=== PATIENT | female | born 1995 | race Two or more races ===

== ENCOUNTER 2022-08-03 12:00 | Outpatient (CLI) | payer MEDICAID, SELFPAY ==
--- NOTE | 2022-08-03 12:15 | CRLHL7_ITS ---
For Patients: As a result of the Century Cures Act, medical imaging exams and procedure reports are released immediately into your electronic medical record. You may view this report before your referring provider. If you have questions, please contact your health care provider. INDICATION: First trimester scan, establish dates. TECHNIQUE: Real-time de la fuente-scale imaging of the pelvis was performed. FINDINGS: Sonographic imaging demonstrates a single living intrauterine gestation. The embryo demonstrates a regular cardiac rate measuring 171 beats per minute. The embryo`s crown-rump length measurement of 2.7 cm corresponds to a gestational age of 9 weeks 4 days with a sonographic due date of 03/04/2023. There is a normal-appearing yolk sac. Small subchorionic hemorrhage measuring 0.4 x 1 x 0.3 centimeters IMPRESSION: Early intrauterine gestation gestational age of 9 weeks 4 days with JASON of 03/04/2023. Small subchorionic hemorrhage measuring 0.4 x 1 x 0.3 cm. Dictated by Guerda Domínguez MD @ 08/03/2022 5:44:11 PM (Electronically Signed)
== END 2022-08-03 12:01 | disposition home or self-care (01) ==
LOC: US 12:01
PROVIDERS: Visit Provider Advanced Practice Midwife
DX: Z34.91 Encounter for supervision of normal pregnancy, unspecified, first trimester (principal); O20.9 Hemorrhage in early pregnancy, unspecified; Z3A.09 9 weeks gestation of pregnancy
CPT/HCPCS: 76817

== ENCOUNTER 2022-08-03 13:22 | Outpatient (CLI) | payer MEDICAID, SELFPAY ==
[2022-08-03 16:01] LABS: HIV 1/2/P24 Combo Screen* Negative (Negative)
[2022-08-03 17:38] LABS: Hepatitis B Surface Antigen* Negative (Negative)
[2022-08-03 17:55] LABS: Hepatitis C Virus Antibody* Negative (Negative)
[2022-08-03 18:51] LABS: Chlamydia DNA Amplified* NOT DETECTED (No Detected); GC DNA Amplified* NOT DETECTED (No Detected)
[2022-08-06 14:34] LABS: Varicella-Zoster Virus Ab, IgG 697.9 IV
[2022-08-06 14:35] LABS: Rubella Antibody IgG 53.4 IU/mL
[2022-08-06 20:38] LABS: Rapid Plasma Reagin (RPR) Non Reactive (Non Reactive)
== END 2022-08-03 13:23 | disposition home or self-care (01) ==
PROVIDERS: Visit Provider Advanced Practice Midwife
DX: Z34.90 Encounter for supervision of normal pregnancy, unspecified, unspecified trimester (principal)
CPT/HCPCS: 86592; 86703; 86762; 86787; 86803; 86850; 86900; 86901; 87086; 87340; 87491; 87591

== ENCOUNTER 2022-11-05 12:56 | Outpatient (CLI) | payer MEDICAID, SELFPAY ==
--- NOTE | 2022-11-05 13:00 | CRLHL7_ITS ---
For Patients: As a result of the Century Cures Act, medical imaging exams and procedure reports are released immediately into your electronic medical record. You may view this report before your referring provider. If you have questions, please contact your health care provider. INDICATION: Evaluate anatomy. COMPARISON: 08/03/2022 TECHNIQUE: Real time de la fuente scale imaging of the fetus was performed as well as color Doppler analysis of the umbilical vessels. FINDINGS: Sonographic imaging demonstrates a single living intrauterine gestation. Fetus demonstrates a regular cardiac rate of 149 beats per minute. Fetus has a variable position. The placenta lies anteriorly without evidence of placenta previa. The edge of the placenta is located 7.4 cm from the internal cervical os. Amniotic fluid volume appears normal. Single deepest vertical pocket: 5.9 cm. The cervix is closed and measures 4.5 cm in length. The composite ultrasound gestational age is calculated at 23 weeks 0 days with an estimated sonographic due date of 03/04/2023. The estimated weight is 559 grams which lies at the 46th %. The following biometric measurements were obtained: Biparietal diameter: 5.5 cm/22 weeks 6 days 41st% Head circumference: 20.6 cm/22 weeks 5 days 25th% Abdominal circumference: 18.7 cm/23 weeks 3 days 57th% Femur length: 3.9 cm/22 weeks 5 days 27th% The HC/AC ratio measures: 1.10 range (1.05-1.21) On anatomic survey, there is a normal appearance of the cerebral ventricles, cavum septi pellucidi, cisterna magna and cerebellum. The nose, lips, and facial profile appear normal. The cervical, thoracic and lumbar spine are well visualized and appear normal. There is a normal four-chamber heart view and the left and right ventricular outflow tracts appear normal. The diaphragm and stomach appear normal. The kidneys and bladder also appear normal. There is a normal three-vessel cord and cord insertion site. The four extremities appear normal. IMPRESSION: Normal OB ultrasound exam with concordance of clinical and sonographic dating. No intrinsic abnormalities noted on anatomic survey. Dictated by John Wynn MD @ 11/06/2022 10:16:34 AM (Electronically Signed)
== END 2022-11-05 12:57 | disposition home or self-care (01) ==
LOC: US 12:57
PROVIDERS: PCP Family Medicine; Visit Provider Physician Assistant
DX: Z34.92 Encounter for supervision of normal pregnancy, unspecified, second trimester (principal); Z3A.22 22 weeks gestation of pregnancy
CPT/HCPCS: 76805

== ENCOUNTER 2022-12-03 13:07 | Outpatient (CLI) | payer MEDICAID, SELFPAY ==
[2022-12-06 11:25] LABS: Rapid Plasma Reagin (RPR) Non Reactive (Non Reactive)
== END 2022-12-03 13:08 | disposition home or self-care (01) ==
LOC: NFLDREF 13:07
PROVIDERS: PCP Family Medicine; Visit Provider Physician Assistant
DX: Z34.82 Encounter for supervision of other normal pregnancy, second trimester (principal)
CPT/HCPCS: 86592

== ENCOUNTER 2023-01-19 14:47 | Outpatient (CLI) | payer MEDICAID, SELFPAY ==
--- NOTE | 2023-01-19 15:00 | CRLHL7_ITS ---
For Patients: As a result of the Century Cures Act, medical imaging exams and procedure reports are released immediately into your electronic medical record. You may view this report before your referring provider. If you have questions, please contact your health care provider. INDICATION: Third trimester scan, evaluate growth. Insufficient weight gain in . COMPARISON: 11/05/2022 TECHNIQUE: Real time de la fuente scale imaging of the fetus was performed. FINDINGS: Sonographic imaging demonstrates a single living intrauterine gestation. Fetus demonstrates a regular cardiac rate of 157 beats per minute. Fetus has a vertex position. The placenta lies anteriorly. Amniotic fluid volume appears normal and there is a single deepest vertical pocket: 6.7 cm. ROSY 17.4 cm. The estimated weight is 2123gm which lies at the 26th %. On the prior OB ultrasound exam dated 11/05/2022 the estimated weight was at the 46th%. BPD 70th percentile. HC 60th percentile. AC 19th percentile. FL 23rd percentile. The HC/AC ratio measures 1.11 range (0.95-1.11). IMPRESSION: Sonographic gestational age 33 weeks 6 days and sonographic due date of 03/03/2023. Good correlation with dates. Normal interval growth. Estimated weight 26th percentile. Abdominal circumference 19th percentile. Dictated by John Wynn MD @ 01/20/2023 6:48:34 AM (Electronically Signed)
== END 2023-01-19 14:48 | disposition home or self-care (01) ==
LOC: US 14:47
PROVIDERS: PCP Family Medicine; Visit Provider Obstetrics & Gynecology
DX: Z34.93 Encounter for supervision of normal pregnancy, unspecified, third trimester (principal); Z3A.33 33 weeks gestation of pregnancy
CPT/HCPCS: 76816

== ENCOUNTER 2023-02-02 13:12 | Outpatient (CLI) | payer MEDICAID, SELFPAY ==
[2023-02-03 14:49] LABS: Strep B DNA Probe NEGATIVE (Negative)
[2023-02-04 16:49] LABS: Strep B Pen/Amox Allergy No
== END 2023-02-02 13:13 | disposition home or self-care (01) ==
LOC: NFLDREF 13:12
PROVIDERS: PCP Family Medicine; Visit Provider Obstetrics & Gynecology
DX: K62.5 Hemorrhage of anus and rectum (principal)
CPT/HCPCS: 87081; 87653

== ENCOUNTER 2023-02-21 08:15 | Inpatient (IN) | payer MEDICAID, SELFPAY ==
[2023-02-21] VITALS (36 sets, daily range): BP systolic 87–114; BP diastolic 43–75; PULSE 65–81; RESP 16–18; TEMP 36.3–36.8; O2SAT 97–100; BMI 27.9
[2023-02-21 07:58] LABS: Basophils Absolute Auto 0.01 K/uL (0.00-0.30); Basophils Percent Auto 0.2 % (0.0-3.0); Eosinophils Absolute Auto 0.04 K/uL (0.00-0.50); Eosinophils Percent Auto 0.6 % (0.0-7.0); Hematocrit 39.3 % (33.0-51.0); Immature Granulocytes Abs Auto 0.06 K/uL (0.00-0.30); Immature Granulocytes Pct Auto 0.9 %; Lymphocytes Absolute Auto 2.21 K/uL (0.90-2.90); Lymphocytes Percent Auto 34.7 % (20-44); Mean Corpuscular HGB Conc 33 gm/dL (32-36); Mean Corpuscular Hemoglobin 28 pg (26-34); Mean Corpuscular Volume 84 fL (80-100); Monocytes Percent Auto 8.2 % (0.0-11.0); Neutrophils Absolute Auto 3.53 K/uL (1.7-7.0); Neutrophils Percent Auto 55.4 % (42.0-72.0); Platelet Count* 203 K/uL (140-440); RDW Coefficient of Variation % 12.4 % (11.5-15.5); Red Blood Count 4.66 m/uL (4.00-5.20); Slide Review Reflex No; White Blood Count* 6.37 K/uL (4.50-11.00)
[2023-02-21] MEDS: LACTATED RINGERS 1000 ML 1,000 ML 125 ML IV ×3 (08:10→13:11)
--- NOTE | 2023-02-21 08:12 | W.PM.LDBA ---
Subjective History of Present Illness Time Seen by Provider: 07:45 Date Seen: 02/21/23 Narrative: Patient is being admitted to Labor and Delivery for SROM at term. She is a 27 year old at 38.3 weeks gestation. Her full history and physical was dictated by myself on 02/17/2023. Please see this for details. She has a history of a delivery x1. She is scheduled for repeat CD on 02/25/2023. However, she ruptured her membrane at 0630 this AM and has been having Q1iqrqbms contractions since. Denies vaginal bleeding or abnormal vaginal discharge. OB - Problem Based A/P Additional Plan (1) Previous delivery affecting : Status: Acute (2) Chronic major depressive disorder: Status: Acute (3) Generalized anxiety disorder: Status: Acute (4) Mild intermittent asthma: Status: Acute Plan - Patient continues to decline TOLAC and desires repeat section - OR team notified and will proceed with repeat CD Delivery/Labor/Induction Plan Plan: Section OB Exam Physical Exam Vital signs: Temp Pulse BP Pulse Ox 98.2 F 70 114/75 100 02/21/23 08:03 02/21/23 07:29 02/21/23 07:29 02/21/23 07:35 Narrative: Physical exam: General: No acute distress Psych: Alert and oriented x3, full affect HEENT: Normocephalic, atraumatic Lungs: labored breathing with contractions Neuro: No focal deficit. Mentating appropriately Pelvic exam: Gross ROM. 1/50/-3, posterior cervix
[2023-02-21] MEDS: CEFAZOLIN 2 GM INJ IVP (08:20)
[2023-02-21 08:31] LABS: SARS PCR* Negative SARS-CoV-2 (Negative)
[2023-02-21] MEDS: AZITHROMYCIN 500 MG in 0.9 % SODIUM CHLORIDE 250 ml 250 ML 255 MG IVPB (08:32)
--- NOTE | 2023-02-21 09:22 | P.OBPRC_ITS ---
Procedure Pre-op/Post-op diagnoses: Pre-Op/Post-Op Diagnoses Operation Date: 02/21/23 08:15 <No data on this case meets the specified criteria> Procedure Done: Global Procedure Details: Procedures Operation Date: 02/21/23 08:15 Actual Procedure Side Surgeon p Section Rhiannon Andrea MD Narrative: DELIVERY BY SECTION Date of Service: 02/21/2023 Delivery time: 0840 Summary: Admitted for SROM and regular contractions in the setting of history of delivery x1, repeat lower auterine transverse section, Pfannenstiel, Closed with sutures, QBL 385 cc, No complications, Findings: Filmy adhesions of omentum to anterior uterus, Normal uterus, bilateral ovaries and tubes 9,9 Weight 7lb 9oz Primary Indication: Labor in the setting of history of delivery x1 Procedures: Repeat lower uterine transverse section Specimens Removed: Placenta Surgeon: Rhiannon Andrea MD Market Research Analyst Surgeon: None Anesthesia: Spinal and tap Report: Prophylactic antibiotic, 2 g of Ancef and 500 mg of azithromycin was given before patient was taken to OR. After arrival to the operating room patient was placed in the supine position with left lateral tilt after administration of spinal anesthesia. Laparotomy A pfannenstiel incision was made through the anterior abdominal wall with #10 scalpel approximately 2 cm above the pubic symphysis (this is approximately 2cm lower than her old incision and patient was informed that I will be making a new incision instead of going over her old incision). The incision was extended sharply with the #10 scalpel through the subcutaneous tissue to the level of fascia. The fascia was entered sharply with a #10 scalpel (Pfannenstiel) in the midline and extended in semi-elliptical fashion with Rausch scissor. The underlying muscles were dissected off the overlying fascia by grasping the superior aspect of fascia with two kendall clamps and blunt dissection was used along the midline. The fascia was further from rectus muscle with Rausch scissor and/or cautery. In similar fashion, the lower aspect of fascia was also grasped with two Kendall clamps and both blunt and sharp dissection was used to separate fascia from rectus muscle. The rectus muscles were in the midline with Khadijah's. The peritoneum was then entered sharply with Metzenbaum. The peritoneal incision was then extended superiorly and inferiorly under direct visualization with care being taken to avoid bladder and bowel using bovie cautery. Minimal filmy adhesion of omentum to anterior uterus. This was easily dissected with electro cautery. The peritoneal incision was enlarged bluntly by lateral traction from the surgeon's and family and divorce legal assistant's hand. Jaylen retractor was inserted into the abdomen. Delivery Bladder flap was not developed as the bladder was low off the lower uterine segment. A low transverse hysterotomy was made then with #10 scalpel and extended laterally and cephalad with fingers in a low transverse fashion with Manu Terrazas technique with care being taken to avoid injury to the fetus. The amniotic cavity (membrane) was then entered with spontaneous rupture of membrane, and the amniotic fluid was noted to be clear, fetus was delivered cephalic. With delivery of the baby, no extension was noted. Placenta was delivered spontaneously with steady traction on cord and manual separation of placenta from uterine wall. Closure Uterine cavity was cleaned after placental delivery with lap sponge x 2. The hysterotomy was closed in two layers with stitches using 0 vicryl with continuous locking stitches and 0 monocryl continuous non-locking. Hemostasis was achieved as needed with electrocautery. The ovaries/tubes/uterine surface were evaluated. They were found to be normal. Fascia was closed with running stitches using 0 PDS. Hemostasis was checked for and found to be adequate. The subcutaneous layer was closed with running 2-0 plain gut sutures after copious amount of irrigation. The skin was closed with 4-0 vicryl subcuticular sutures. The incision was cleaned and covered with Exofin and Mepilex dressing. Intraoperative Complications: None QBL: 385 cc Uterotonics: 30u of pitocin Disposition: The patient tolerated the procedure well. She was recovered in obstetric PACU for close monitoring in stable condition, with a contracted uterus and normal transvaginal bleeding. The was sent to mother's bedside. The placenta was not sent to pathology.
--- NOTE | 2023-02-21 09:29 | P.NB_ITS ---
Nerve Block Nerve Block Time Seen by Provider: 09:10 Date Seen: 02/21/23 Type of block requested by surgeon for post-operative analgesia: TAP Side: bilateral Time out performed: Yes Verification of patient name: Yes Verification of date of : Yes Site marking: not applicable Name of person performing procedure: lisy Continuous monitoring Was continuous monitoring of O2 sat, B/P, telemetry monitor, recorded every 15 minutes?: Yes Procedure Checklist: sterile prep, needles and gloves Ultrasound guided. Images saved: Yes Medications given in 5ml increments after negative aspiration: Marcaine %: 0.25 mL: 30 Needle gauge: 20 and Exparel mL: 10 Patient tolerated procedure well: Yes Block Charges Block Charge (with Pro Fee): TAP Bilateral Use of Ultrasound Machine for Block: Yes- US Guidance/pain block
--- NOTE | 2023-02-21 09:30 | P.ANES_ITS ---
Anesthesia Charges Start Date/Time Anesthesia Start Date: 02/21/23 Anesthesia Start Time: 08:10 Stop Date/Time Anesthesia Stop Date: 02/21/23 Anesthesia Stop Time: 09:22 Summary Emergency: INTERNAL MEDICINE VETERINARY TECHNICIAN
[2023-02-21] MEDS: KETOROLAC 30 MG/ML inj IVP (14:52)
[2023-02-21] MEDS: IBUPROFEN 600 MG TABLET PO (21:05)
[2023-02-22] VITALS (11 sets, daily range): BP systolic 92–110; BP diastolic 52–68; PULSE 66–75; RESP 16–18; TEMP 36.1–36.7; O2SAT 98
[2023-02-22] MEDS: ACETAMINOPHEN 500 MG TABLET 1000 MG PO ×2 (00:04→06:05)
[2023-02-22] MEDS: IBUPROFEN 600 MG TABLET PO (03:04)
[2023-02-22 05:52] LABS: Hemoglobin* 9.5 gm/dL (12.0-16.0)
--- NOTE | 2023-02-22 07:36 | PM.OBPNCS1 ---
OB - PN: A/P Assessment and Plan (1) Chronic major depressive disorder: Status: Acute (2) Generalized anxiety disorder: Status: Acute (3) Mild intermittent asthma: Status: Acute (4) care following delivery: Status: Acute (5) Lactating mother: Status: Acute (6) Anemia, : Status: Acute Plan 1. POD #1 2. Routine cares. 3. Would like to discharge today. Will consider if continues to do well this evening. 4. Anemia, Hgb 9.5. Begin PO iron supplementation. Plan day: 1 Plan: routine postop care (will consider discharge this evening per her request) OB - PN: Subj Subjective Date Seen: 02/22/23 Patient comments: no complaints, pain well controlled, tolerating diet and flatus present status: and doing well [place] feeding status: exclusively Narrative: Day 1:?Repeat Delivery at 38 and 3/7 weeks after SROM.? ?? Complications:? none? The patient feels well.? The pain is well controlled with current medications.? She has no new complaints.? Urinary output is adequate and she is voiding without difficulty.? Has a good appetite, is tolerating a general diet, is passing flatus, and has not had a bowel movement.? Has scant amount of rubra lochia.? She is ambulating well. She is requesting to be discharged home today if possible. She will get up and shower this morning. If she continues to do well and her pain remains well controlled will consider discharge this evening.? OB - PN: Obj Exam Physical Exam: Vital signs: Temp Pulse Resp BP Pulse Ox O2 Del Method 97.7 F 66 16 92/52 L 98 Room Air 02/22/23 03:15 02/22/23 03:15 02/22/23 06:12 02/22/23 03:15 02/22/23 03:15 02/22/23 03:15 Narrative: GENERAL APPEARANCE:? normal affect, alert, no distress? MOOD:? appropriate? CHEST:? clear to auscultation and percussion? HEART:? regular rate and rhythm? ABDOMEN:? soft, non-tender the uterine fundus is U/2 and is appropriate for the stage of recovery.?Incision is covered by a dressing that is dry.c lean and intact. Will remove the dressing this morning.? EXTREMITIES:? normal and no edema? Urinary Catheter Management: Urethral: Cath placed during this visit: yes, but has since been removed by the nurse Reason for continuing: decision to DC catheter Insertion date: 02/21/23 Removal date: 02/21/23 Removal time: 19:40 OB - PN: Obj Data Labs Labs: Laboratory Results - last 24 hr 02/21/23 02/21/23 02/22/23 07:30 07:40 05:46 WBC 6.37 RBC 4.66 Hgb 13.0 9.5 L Hct 39.3 MCV 84 MCH 28 MCHC 33 RDW Coeff of Arely 12.4 Plt Count 203 Neut % (Auto) 55.4 Lymph % (Auto) 34.7 [place] % (Auto) 8.2 Eos % (Auto) 0.6 Baso % (Auto) 0.2 Neut # (Auto) 3.53 Lymph # (Auto) 2.21 [place] # (Auto) 0.50 Eos # (Auto) 0.04 Baso # (Auto) 0.01 SARS-CoV-2 (PCR) Negative SARS-CoV-2 Blood Type O Positive Antibody Screen NEGATIVE
[2023-02-22] MEDS: DOCUSATE SODIUM 100 MG CAPSULE PO (10:32)
[2023-02-22] MEDS: FERROUS SULFATE 325 MG TABLET PO (10:34)
--- NOTE | 2023-02-22 16:46 | PM.OBDSCS1 ---
DS: Providers Provider Date Seen: 02/22/23 Date of admission: 02/21/23 08:15 Primary care physician: John Lockwood MD Admitting Clinician: Rhiannon Andrea MD Attending Physician on discharge: Rhiannon Andrea MD Date of Discharge: 02/22/23 DS: Diagnosis Discharge Diagnosis (1) care following delivery: Status: Acute (2) Lactating mother: Status: Acute (3) Anemia, : Status: Acute Exam Narrative: Exam Narrative: GENERAL APPEARANCE:? normal affect, alert, no distress? MOOD:? appropriate? CHEST:? clear to auscultation and percussion? HEART:? regular rate and rhythm? ABDOMEN:? soft, non-tender the uterine fundus is 2 cm Below Umbilicus, Midline and is appropriate for the stage of recovery. Incision well approximated without edema, redness, warmth, or drainage. Glue closure intact.? PERINEUM:? intact EXTREMITIES:? normal and no edema? Patient has no complaints? No active bleeding?? Doing well? She is requesting discharge home.? Const: Vital Signs, click to edit/add: Vital Signs - 24 hr 02/21/23 17:28 02/21/23 19:00 02/21/23 19:28 Temperature Pulse Rate Pulse Rate [Pulse Oximeter] Respiratory Rate 16 16 16 Blood Pressure Blood Pressure [Le ft Arm] Pulse Oximetry Oxygen Delivery Me thod 02/21/23 19:40 02/21/23 19:40 02/21/23 20:28 Temperature 97.8 F 97.8 F Pulse Rate 70 Pulse Rate [Pulse Oximeter] 70 Respiratory Rate 16 16 16 Blood Pressure 103/70 Blood Pressure [Le ft Arm] 103/70 Pulse Oximetry 98 98 Oxygen Delivery Me thod Room Air Room Air 02/21/23 21:12 02/21/23 22:00 02/21/23 22:28 Temperature Pulse Rate Pulse Rate [Pulse Oximeter] Respiratory Rate 16 18 18 Blood Pressure Blood Pressure [Le ft Arm] Pulse Oximetry Oxygen Delivery Me thod 02/21/23 23:30 02/21/23 23:30 02/21/23 23:28 Temperature 97.9 F 97.9 F Pulse Rate 65 Pulse Rate [Pulse Oximeter] 65 Respiratory Rate 18 18 18 Blood Pressure 97/61 Blood Pressure [Le ft Arm] 97/61 Pulse Oximetry 98 98 Oxygen Delivery Nj thod Room Air Room Air 02/22/23 00:13 02/22/23 01:28 02/22/23 02:28 Temperature Pulse Rate Pulse Rate [Pulse Oximeter] Respiratory Rate 16 16 16 Blood Pressure Blood Pressure [Le ft Arm] Pulse Oximetry Oxygen Delivery Me thod 02/22/23 03:17 02/22/23 03:15 02/22/23 04:28 Temperature 97.7 F Pulse Rate Pulse Rate [Pulse Oximeter] 66 Respiratory Rate 18 18 16 Blood Pressure Blood Pressure [Le ft Arm] 92/52 L Pulse Oximetry 98 Oxygen Delivery Me thod Room Air 02/22/23 05:28 02/22/23 06:12 02/22/23 07:56 Temperature 97 F L Pulse Rate Pulse Rate [Pulse Oximeter] 75 Respiratory Rate 16 16 16 Blood Pressure Blood Pressure [Le ft Arm] 104/68 Pulse Oximetry 98 Oxygen Delivery Nj thod Room Air 02/22/23 09:25 Temperature Pulse Rate Pulse Rate [Pulse Oximeter] Respiratory Rate 16 Blood Pressure Blood Pressure [Le ft Arm] Pulse Oximetry Oxygen Delivery Me thod DS: Data Data Completed and Pending Labs on day of discharge: Labs from last 24 hours 02/22/23 02/21/23 05:46 07:40 Hgb 9.5 L Antibody Screen NEGATIVE OB - DS: Summary Hospital Course Hospital Course: The patient is a 27 year old G 2 now P 2? admitted on 02/21/23 at 38 Weeks, 3 Days gestation for repeat after SROM.? She had an uncomplicated delivery.? She delivered a viable female .? She is breast feeding and reports things are well.? the patient has done well.? Her pain is well controlled with current medications.? She has no new complaints.? Vitals have been stable. She has remained afebrile. She is voiding without difficulty. She is passing gas and has not had a bowel movement. She is ambulating and denies any dizziness. She is planning condoms with potentially a partner vasectomy for control.?Things have continued to go very well for her today. She is ambulating without difficulty and has denied pain throughout the day. She is still requesting a discharge today. She states that she has good support at home and feel comfortable with warning signs or when to be evaluated. Denies further questions or concerns. Peripartum Data Procedures: Procedures Operation Date: 02/21/23 08:15 Actual Procedure Side Surgeon p Section Rhiannon Andrea MD complications: none Gender: Female Discharge Plan: Home Status at Discharge Functional status at discharge: independent ambulation Overall status at discharge: patient is progressing back to baseline Time Spent with Patient Time attestation: Total time spent providing and/or coordinating discharge services: Discharge Plan Discharge Disposition: Home, Self-Care Date of Admission: 02/21/23 08:15 Primary Care Provider: John Lockwood Condition: Stable Anticipated Discharge Date/Time: 02/22/23 18:00 Discharge Medications: New docusate sodium 100 mg Capsule 100 mg PO DAILY Qty: 90 0RF Rx Instructions: Take 1-2 tablets daily as needed for constipation. ibuprofen 600 mg Tablet 600 mg PO Q6H PRN (Reason: Pain) Qty: 60 0RF oxycodone 5 mg Tablet 5 - 10 mg PO Q4H PRN (Reason: Pain) Qty: 5 0RF Continued albuterol sulfate 90 mcg/actuation HFA aerosol inhaler 2 inh inhalation Q4-6H PRN (Reason: shortness of breath or wheezing) Qty: 6.7 0RF acetaminophen [Tylenol Extra Strength] 500 mg tablet 1,000 mg PO Q6H PRN fluticasone propionate 100 mcg/actuation blister with device 1 inh inhalation BID [id number] [Esgic] 50-325-40 mg tablet 1 tab PO Q6H PRN (Reason: pain) Qty: 30 0RF prenat.vits,jessica,cxy-iliq-ptzee Tablet 1 tab PO QDAY Discharge Orders: Discharge Order (Routine); Ordered 02/22/23 Ordered By: Francisca Telles Additional Instructions: Discharge instructions were reviewed with the patient including signs and symptoms of infection and home going medications? ?? Activity restrictions:? Lifting Restrictions: 20 pounds for 6 weeks? No high-impact or core exercises for 6 weeks.?? No not submerge incision under water X 2 weeks?? Nothing vaginally for 6 weeks: no tampons or intercourse? Do not drive while taking narcotic pain medication(s)? Off Work or School for 8 weeks? ?? Symptoms to report to doctor:? -Bleeding that saturates more than one pad per hour? -Passing clots larger than the size of a golf ball? -Pain not relieved by prescribed medication? -Fever above 100.4 degrees Fahrenheit? -A foul vaginal odor? -Difficulty in emotions, mood and functions? -Thoughts of hurting yourself and/or ? -Painful, reddened area in your breast? -Any drainage, redness or tenderness in your IV/epidural site? -Severe headache that doesn't improve after taking medications? -Changes in vision, including temporary loss of vision, blurred vision, and/or light sensitivity? -Upper abdominal pain (usually under ribs on the right side)? -Decrease in urination or painful, frequent urinating? -Chest pain? -Shortness of breath? -Tenderness or pain with redness and/swelling in the calf(s) of your leg? Follow up visits:?? 1. 1 week visit:? incision check.? 2. 2-week visit: discuss infant feeding/care concerns, review control options and screen for anxiety/depression.? 3. 6-week visit for an annual exam.? ?? consultation services are available to all mothers and babies for the first year after delivery.? To make an appointment, please call [phone].? Follow Up Appointments: John Lockwood MD [Primary Care Provider] - [facility] [Provider Group] Forms: [employer] Info Instructions
== END 2023-02-22 18:11 | disposition home or self-care (01) | DRG 788 ==
LOC: OB OUT 08:22 → OB 08:22
PROVIDERS: Admitting Provider Obstetrics & Gynecology; PCP Family Medicine; Visit Provider Obstetrics & Gynecology
PROC: 10D00Z1 Extraction of Products of Conception, Low, Open Approach (ICD-10-PCS; CPT 59514; principal; 2023-02-21 08:00)
DX: O75.82 Onset (spontaneous) of labor after 37 completed weeks of gestation but before 39 completed weeks gestation, with delivery by (planned) cesarean section (principal); O99.344 Other mental disorders complicating childbirth; F32.9 Major depressive disorder, single episode, unspecified; F41.1 Generalized anxiety disorder; J45.20 Mild intermittent asthma, uncomplicated; Z3A.38 38 weeks gestation of pregnancy; O90.81 Anemia of the puerperium; D64.9 Anemia, unspecified; Z37.0 Single live birth
CPT/HCPCS: 01961; 36415; 76942; 85018; 85025; 86850; 86900; 86901; 87635; 99140; A9270; C9290; J0456; J0690; J1100; J1200; J1885; J2274; J2370; J2405; J2590; J3490; J7050; J7120

== ENCOUNTER 2023-09-20 13:03 | Emergency (ER) | payer MEDICAID, SELFPAY ==
[2023-09-20 13:18] VITALS: BP 110/71; PULSE 87; RESP 16; TEMP 36.3; O2SAT 99; BMI 27.3
--- NOTE | 2023-09-20 15:18 | ED.GENADULT ---
HPI - General Adult General Chief complaint: Abdominal Pain Stated complaint: Abdominal pain Time Seen by Provider: 09/20/23 15:19 History of Present Illness HPI narrative: Patient reports vomiting, nausea and abdominal pain that wraps around to back as well as chills. These symptoms began today. 28-year-old woman presenting to the emergency department with vomiting nausea abdominal pain. She has had some chills that seems to accompanying nausea. Does have a history of diverticulitis, endometritis and congenitally atrophic kidney. She says that this burning and wrap around pain that she has starting in the epigastrium as described and then wrapping around underneath is not unfamiliar for endometrial pain but would be in a different location. Denies heartburn. Years ago had cholecystectomy and since has had loose stools but otherwise no problems. Is not short of breath. Symptoms seem to have begun over this last week with onset of discomfort in the epigastrium that came and went and now she is having more of a burning spreading pain from the epigastrium around both sides. No dysuria or hematuria described. She has been vomiting now over the last day. No hematemesis noted. Last week she does recall while driving that she felt suddenly really financial services agent her upper abdomen and it spread out. No ill exposures although daughter with a stye that apparently had a staph organism. As above does not appear to be constipated Related Data Home Medications Medication Instructions Recorded Confirmed acetaminophen 500 mg tablet 1,000 mg PO Q6H PRN 12/03/22 08/25/23 (Tylenol Extra Strength) fluticasone propionate 100 1 inh inhalation BID 12/31/22 08/25/23 mcg/actuation blister powder for inhalation Previous Rx's Medication Instructions Recorded ibuprofen 600 mg tablet 600 mg PO Q6H PRN Pain #60 tabs 02/22/23 albuterol sulfate 90 mcg/actuation 2 inh inhalation Q4-6H PRN 04/06/23 aerosol inhaler shortness of breath or wheezing #6.7 grams dblficyqnl-kyjoywabbkhqt-uzgkugvt 1 tab PO Q6H PRN pain #30 tabs 04/06/23 50 mg-325 mg-40 mg tablet (Esgic) uljlajcv-syqrvv-OA-thonzonm 3.3 4 drp otic (ear) TID #10 mL 08/26/23 mg-3 mg-10 mg-0.5 mg/mL ear drops,susp (Cortisporin-TC) Allergies Allergy/AdvReac Type Severity Reaction Status Date / Time sumatriptan Allergy Severe throat Verified 08/25/23 16:40 stacey blount Review of Systems Status of ROS: Reports: 6 or more systems reviewed and unremarkable except as noted in History and below [facility] Medical History Diverticulitis (02/04/22) ?K57.92 - Diverticulitis of intestine, part unspecified, without perforation or abscess without bleeding (ICD-10) Generalized anxiety disorder ?F41.1 - Generalized anxiety disorder (ICD-10) Migraines ?G43.909 - Migraine, unspecified, not intractable, without status migrainosus (ICD-10) Vitamin D deficiency (10/26/12) ?E55.9 - Vitamin D deficiency, unspecified (ICD-10) Mild intermittent asthma (02/26/10) ?J45.20 - Mild intermittent asthma, uncomplicated (ICD-10) Gastritis (09/27/19) ?K29.70 - Gastritis, unspecified, without bleeding (ICD-10) Congenital atrophy of kidney ?Q60.5 - Renal hypoplasia, unspecified (ICD-10) Endometriosis determined by laparoscopy (03/22/17) ?N80.9 - Endometriosis, unspecified (ICD-10) Surgical History Previous delivery affecting ?O34.219 - Maternal care for unspecified type scar from previous delivery (ICD-10) History of section (02/27/19) ?Z98.891 - History of uterine scar from previous surgery (ICD-10) History of laparoscopy (03/22/17) ?Z98.890 - Other specified postprocedural states (ICD-10) [place] teeth extracted ?K08.409 - Partial loss of teeth, unspecified cause, unspecified class (ICD-10) History of cholecystectomy ?Z90.49 - Acquired absence of other specified parts of digestive tract (ICD-10) Family History Mother Asthma Diabetes Glaucoma (increased eye pressure) Retinal detachment Brother Asthma Father High blood pressure High cholesterol Brother Insulin resistance Social History Smoking Status: Never smoker Do you use any of these nicotine containing products: None Second hand tobacco smoke exposure: No How often do you have a drink containing alcohol: never How often do you have six or more drinks on one occasion: Never AUDIT-C Alcohol total score: 0 Non-prescribed substance use: denies use Little interest or pleasure in doing things: several days Feeling down, depressed, or hopeless: several days Exam Narrative: Exam Narrative: Pleasant. Seems tired. NAD. Oropharynx is moist. Seems to be restricted in how far she can open her jaw but not painful. No erythema. Neck is supple without lymphadenopathy. Lungs are clear heart in a regular rate and rhythm. Abdomen is soft and uncomfortable to palpation through the epigastrium generally upper abdomen. Though on exam appears to have discomfort throughout the abdomen. Bowel sounds are present. No masses are appreciated. Abdomen is protuberant or overweight. Extremities are well perfused without edema. Const: Vital Signs, click to edit/add: Vital Signs - 24 hr 09/20/23 13:18 Temperature 97.4 F L Pulse Rate [Pulse Oximeter] 87 Respiratory Rate 16 Blood Pressure [Ri ght Upper Arm] 110/71 Pulse Oximetry 99 Oxygen Delivery Me thod Room Air Documenting provider has reviewed patient's vital signs: yes Course Vital Signs Vital signs: Initial Vital Signs Temperature 97.4 F L 09/20/23 13:18 Temperature Source Temporal Artery Scan 09/20/23 13:18 Pulse Rate 87 09/20/23 13:18 Respiratory Rate 16 09/20/23 13:18 Blood Pressure 110/71 09/20/23 13:18 Blood Pressure Mean 84 09/20/23 13:18 Pulse Oximetry 99 09/20/23 13:18 Oxygen Delivery Method Room Air 09/20/23 13:18 Vital Signs Temperature 97.4 F L 09/20/23 13:18 Pulse Rate 87 09/20/23 13:18 Respiratory Rate 16 09/20/23 13:18 Blood Pressure 110/71 09/20/23 13:18 Pulse Oximetry 99 09/20/23 13:18 Oxygen Delivery Method Room Air 09/20/23 13:18 Temperature 97.4 F L 09/20/23 13:18 Pulse Rate 87 09/20/23 13:18 Respiratory Rate 16 09/20/23 13:18 Blood Pressure 110/71 09/20/23 13:18 Pulse Oximetry 99 09/20/23 13:18 Oxygen Delivery Method Room Air 09/20/23 13:18 Medications Administered Medications: Discontinued Medications Generic Name Dose Route Start Last Admin Trade Name Michelle PRN Reason Stop Dose Admin Sodium Chloride 1,000 mls @ 1,000 mls/hr 09/20/23 15:28 09/20/23 16:51 0.9 % Sodium Chloride 1000 Ml IV 09/20/23 16:27 Infused .Q1H ONE Infusion Ketorolac Tromethamine 30 mg 09/20/23 15:47 09/20/23 15:56 Ketorolac 30 Mg/Ml Inj IVP 09/20/23 15:48 30 mg ONCE ONE Administration Ondansetron HCl 4 mg 09/20/23 15:28 09/20/23 15:56 Ondansetron 2 Mg/Ml Inj IVP 09/20/23 15:29 4 mg ONCE ONE Administration Medical Decision Making MDM Narrative Medical decision making narrative: She would appreciate fluids and antiemetics. Abdominal symptoms are nonspecific and generalized. I feel like I would need some lab to direct better, more efficient imaging. Symptoms are not inconsistent with a gastroenteritis. Will evaluate for evidence of retained ductal stone, urinary tract infection, pancreatitis, flare of heartburn otherwise, COVID or influenza, marked elevation in white count that might prompt further imaging. IV initiated. Receives normal saline, Zofran and ketorolac with request for pain medication. On reassessment had improved. Nausea started to build again and she said her discomfort was increasing as well; indicating epigastric. Given promethazine and GI cocktail. Still with discomfort but feeling somewhat lightheaded/more tired following promethazine administration. No peripheral sensory changes. Labs overall reassuring with mildly elevated white count, mild elevation in ALT, normal lipase, concentrated urine Offered further workup but she feels she needs to return to her children. Says she has Zofran available at home. Reported that did not take this because did not have time to find it before presenting to the emergency department Easily ambulatory from the ER. See patient discharge plan Lab Data Lab results reviewed: Yes I reviewed the patient's lab results Labs: Lab Results 09/20/23 09/20/23 09/20/23 Range/Units 15:40 15:45 15:45 WBC 14.06 H (4.50-11.00) K/uL RBC 5.13 (4.00-5.20) m/uL Hgb 14.9 (12.0-16.0) gm/dL Hct 45.0 (33.0-51.0) % MCV 88 (80-100) fL MCH 29 (26-34) pg MCHC 33 (32-36) gm/dL RDW Coeff of Arely 12.2 (11.5-15.5) % Plt Count 217 (140-440) K/uL Neut % (Auto) 85.8 H (42.0-72.0) % Lymph % (Auto) 8.5 L (20-44) % Angelina % (Auto) 4.8 (0.0-11.0) % Eos % (Auto) 0.6 (0.0-7.0) % Baso % (Auto) 0.1 (0.0-3.0) % Neut # (Auto) 12.10 H (1.7-7.0) K/uL Lymph # (Auto) 1.20 (0.90-2.90) K/uL Angelina # (Auto) 0.70 (0.00-0.90) K/UL Eos # (Auto) 0.10 (0.00-0.50) K/uL Baso # (Auto) 0.00 (0.00-0.30) K/uL Abs Immat Gran (auto) 0.00 (0.00-0.30) K/uL Imm/Tot Granulo (auto) 0.2 % D-Dimer Quant (PE/DVT) 0.32 (0.00-0.50) ug/ml Sodium 140 (135-149) mmol/L Potassium 4.0 (3.6-5.1) mmol/L Chloride 104 (96-114) mmol/L Carbon Dioxide 25 (20-32) mmol/L Anion Gap 11 (7-15) mEq/L BUN 14 (5-24) mg/dL Creatinine 0.5 (0.5-1.5) mg/dL Estimated Creat Clear 118.17 Estimated GFR 129 ml/min Glucose 125 H (60-115) mg/dL Calcium 8.7 (8.4-10.6) mg/dL Total Bilirubin 1.1 Cancelled (0.1-1.5) mg/dL Direct Bilirubin 0.0 (0.0-0.5) mg/dL AST (12-35) U/L ALT (4-35) U/L Alkaline Phosphatase (40-150) U/L C-Reactive Protein (0.5-1.0) mg/dL Total Protein (6.0-8.3) g/dL Albumin (3.3-5.0) g/dL Lipase (23-300) U/L Urine Color Yellow (Yellow) Urine Appearance Clear (Clear) Urine pH 5.5 (5.0-8.5) Ur Specific [place] >= 1.030 (1.000-1.030) Urine Protein 1+ A (Negative) Urine Glucose (UA) Negative (Negative) Urine Ketones Negative (Negative) Urine Blood Trace-lysed A (Negative) Urine Nitrite Negative (Negative) Urine Bilirubin Negative (Negative) Urine Urobilinogen 0.2 (0.2-1.0) Ur Leukocyte Esterase Negative (Negative) Urine RBC 0-2 (0-2) Urine WBC 0-2 (0-5) Ur Squamous Epith Cells Moderate A (None-Few) Urine Bacteria Few A (None) SARS-CoV-2 (PCR) (Negative) Influenza Type A (PCR) (Negative) Influenza Type B (PCR) (Negative) 09/20/23 09/20/23 09/20/23 Range/Units 15:45 15:45 15:45 WBC (4.50-11.00) K/uL RBC (4.00-5.20) m/uL Hgb (12.0-16.0) gm/dL Hct (33.0-51.0) % MCV (80-100) fL MCH (26-34) pg MCHC (32-36) gm/dL RDW Coeff of Arely (11.5-15.5) % Plt Count (140-440) K/uL Neut % (Auto) (42.0-72.0) % Lymph % (Auto) (20-44) % Angelina % (Auto) (0.0-11.0) % Eos % (Auto) (0.0-7.0) % Baso % (Auto) (0.0-3.0) % Neut # (Auto) (1.7-7.0) K/uL Lymph # (Auto) (0.90-2.90) K/uL Angelina # (Auto) (0.00-0.90) K/UL Eos # (Auto) (0.00-0.50) K/uL Baso # (Auto) (0.00-0.30) K/uL Abs Immat Gran (auto) (0.00-0.30) K/uL Imm/Tot Granulo (auto) % D-Dimer Quant (PE/DVT) (0.00-0.50) ug/ml Sodium (135-149) mmol/L Potassium (3.6-5.1) mmol/L Chloride (96-114) mmol/L Carbon Dioxide (20-32) mmol/L Anion Gap (7-15) mEq/L BUN (5-24) mg/dL Creatinine (0.5-1.5) mg/dL Estimated Creat Clear Estimated GFR ml/min Glucose (60-115) mg/dL Calcium (8.4-10.6) mg/dL Total Bilirubin (0.1-1.5) mg/dL Direct Bilirubin Cancelled (0.0-0.5) mg/dL AST 32 Cancelled (12-35) U/L ALT 53 H Cancelled (4-35) U/L Alkaline Phosphatase 96 (40-150) U/L C-Reactive Protein (0.5-1.0) mg/dL Total Protein (6.0-8.3) g/dL Albumin (3.3-5.0) g/dL Lipase (23-300) U/L Urine Color (Yellow) Urine Appearance (Clear) Urine pH (5.0-8.5) Ur Specific [place] (1.000-1.030) Urine Protein (Negative) Urine Glucose (UA) (Negative) Urine Ketones (Negative) Urine Blood (Negative) Urine Nitrite (Negative) Urine Bilirubin (Negative) Urine Urobilinogen (0.2-1.0) Ur Leukocyte Esterase (Negative) Urine RBC (0-2) Urine WBC (0-5) Ur Squamous Epith Cells (None-Few) Urine Bacteria (None) SARS-CoV-2 (PCR) (Negative) Influenza Type A (PCR) (Negative) Influenza Type B (PCR) (Negative) 09/20/23 09/20/23 09/20/23 Range/Units 15:45 15:45 15:45 WBC (4.50-11.00) K/uL RBC (4.00-5.20) m/uL Hgb (12.0-16.0) gm/dL Hct (33.0-51.0) % MCV (80-100) fL MCH (26-34) pg MCHC (32-36) gm/dL RDW Coeff of Arely (11.5-15.5) % Plt Count (140-440) K/uL Neut % (Auto) (42.0-72.0) % Lymph % (Auto) (20-44) % Angelina % (Auto) (0.0-11.0) % Eos % (Auto) (0.0-7.0) % Baso % (Auto) (0.0-3.0) % Neut # (Auto) (1.7-7.0) K/uL Lymph # (Auto) (0.90-2.90) K/uL Angelina # (Auto) (0.00-0.90) K/UL Eos # (Auto) (0.00-0.50) K/uL Baso # (Auto) (0.00-0.30) K/uL Abs Immat Gran (auto) (0.00-0.30) K/uL Imm/Tot Granulo (auto) % D-Dimer Quant (PE/DVT) (0.00-0.50) ug/ml Sodium (135-149) mmol/L Potassium (3.6-5.1) mmol/L Chloride (96-114) mmol/L Carbon Dioxide (20-32) mmol/L Anion Gap (7-15) mEq/L BUN (5-24) mg/dL Creatinine (0.5-1.5) mg/dL Estimated Creat Clear Estimated GFR ml/min Glucose (60-115) mg/dL Calcium (8.4-10.6) mg/dL Total Bilirubin (0.1-1.5) mg/dL Direct Bilirubin (0.0-0.5) mg/dL AST (12-35) U/L ALT (4-35) U/L Alkaline Phosphatase Cancelled (40-150) U/L C-Reactive Protein 0.6 (0.5-1.0) mg/dL Total Protein 7.9 Cancelled (6.0-8.3) g/dL Albumin 4.8 Cancelled (3.3-5.0) g/dL Lipase 101 (23-300) U/L Urine Color (Yellow) Urine Appearance (Clear) Urine pH (5.0-8.5) Ur Specific [place] (1.000-1.030) Urine Protein (Negative) Urine Glucose (UA) (Negative) Urine Ketones (Negative) Urine Blood (Negative) Urine Nitrite (Negative) Urine Bilirubin (Negative) Urine Urobilinogen (0.2-1.0) Ur Leukocyte Esterase (Negative) Urine RBC (0-2) Urine WBC (0-5) Ur Squamous Epith Cells (None-Few) Urine Bacteria (None) SARS-CoV-2 (PCR) Negative SARS-CoV-2 (Negative) Influenza Type A (PCR) Negative PCR FLU A (Negative) Influenza Type B (PCR) Negative PCR FLU B (Negative) Discharge Plan Discharge Clinical Impression: Acute upper abdominal pain, Vomiting Patient Disposition: Home w/ Parent or Adult Condition: Stable Additional Instructions: Might want to use some of that Zofran over the next couple of days. Focus on hydration with slow advance of diet over the next 36 hours or so. Diluted juices, soup broths, rice, crackers. Return for intractable vomiting, severe/increased abdominal pain, associated fever. Prescriptions: No Action acetaminophen [Tylenol Extra Strength] 500 mg tablet 1,000 mg PO Q6H PRN fluticasone propionate 100 mcg/actuation blister with device 1 inh inhalation BID albuterol sulfate 90 mcg/actuation HFA aerosol inhaler 2 inh inhalation Q4-6H PRN (Reason: shortness of breath or wheezing) Qty: 6.7 1RF eqsjdbesic-sbsfuktsxbbsa-lymd [Esgic] 50-325-40 mg tablet 1 tab PO Q6H PRN (Reason: pain) Qty: 30 0RF ibuprofen 600 mg Tablet 600 mg PO Q6H PRN (Reason: Pain) Qty: 60 0RF Cortisporin-TC 3.3-3-10-0.5 mg/mL drops,suspension 4 drp otic (ear) TID Qty: 10 0RF Follow Up/Referrals: John Lockwood MD [Primary Care Provider] - Stand Alone Forms: [employer] Info Instructions
[2023-09-20 15:55] LABS: Basophils Percent Auto 0.1 % (0.0-3.0); Eosinophils Percent Auto 0.6 % (0.0-7.0); Hemoglobin* 14.9 gm/dL (12.0-16.0); Immature Granulocytes Pct Auto 0.2 %; Lymphocytes Percent Auto 8.5 % (20-44); Mean Corpuscular HGB Conc 33 gm/dL (32-36); Mean Corpuscular Hemoglobin 29 pg (26-34); Mean Corpuscular Volume 88 fL (80-100); Monocytes Percent Auto 4.8 % (0.0-11.0); Neutrophils Percent Auto 85.8 % (42.0-72.0); Platelet Count* 217 K/uL (140-440); RDW Coefficient of Variation % 12.2 % (11.5-15.5); Red Blood Count 5.13 m/uL (4.00-5.20); White Blood Count* 14.06 K/uL (4.50-11.00)
[2023-09-20] MEDS: KETOROLAC 30 MG/ML inj IVP (15:56)
[2023-09-20] MEDS: 0.9 % SODIUM CHLORIDE 1000 ml 1,000 ML IV (15:56)
[2023-09-20] MEDS: ONDANSETRON 2 MG/ML inj 4 MG IVP (15:56)
[2023-09-20 15:58] LABS: Slide Review Reflex No
[2023-09-20 16:05] LABS: Appearance Urine Clear (Clear); Bilirubin Urine Negative (Negative); Blood Urine Trace-lysed (Negative); Color Urine Yellow (Yellow); Glucose Urine Negative (Negative); Ketones Urine Negative (Negative); Leukocyte Esterase Urine Negative (Negative); Nitrite Urine Negative (Negative); Protein Urine 1+ (Negative); Specific Gravity Urine >= 1.030 (1.000-1.030); Urobilinogen Urine 0.2 (0.2-1.0); pH Urine 5.5 (5.0-8.5)
[2023-09-20 16:08] LABS: Albumin* 4.8 g/dL (3.3-5.0); Chloride* 104 mmol/L (96-114)
[2023-09-20 16:09] LABS: Sodium* 140 mmol/L (135-149)
[2023-09-20 16:11] LABS: Alkaline Phosphatase* 96 U/L (40-150); Anion Gap 11 mEq/L (7-15); Aspartate Amino Transferase* 32 U/L (12-35); Bilirubin Total* 1.1 mg/dL (0.1-1.5); Blood Urea Nitrogen* 14 mg/dL (5-24); Carbon Dioxide* 25 mmol/L (20-32); Creatinine* 0.5 mg/dL (0.5-1.5); D Dimer Quantitative* 0.32 ug/ml (0.00-0.50); Est. Creatinine Clearance* 118.17; Estimated Glomerular Filt Rate 129 ml/min; Glucose* 125 mg/dL (60-115); Lipase* 101 U/L (23-300); Total Protein* 7.9 g/dL (6.0-8.3)
[2023-09-20 16:12] LABS: Alanine Aminotransferase* 53 U/L (4-35); Calcium* 8.7 mg/dL (8.4-10.6)
[2023-09-20 16:14] LABS: Bacteria Urine Few; RBC Urine 0-2 (0-2); Squamous Epithelial Cell Urine Moderate (None-Few); WBC Urine 0-2 (0-5)
[2023-09-20 16:14] LABS: C Reactive Protein* 0.6 mg/dL (0.5-1.0)
[2023-09-20 16:31] LABS: PCR FLU A Negative PCR FLU A (Negative); PCR FLU B Negative PCR FLU B (Negative); SARS PCR* Negative SARS-CoV-2 (Negative)
== END 2023-09-20 17:53 | disposition home or self-care (01) ==
PROVIDERS: Emergency Provider Family Medicine; PCP Family Medicine
DX: R10.9 Unspecified abdominal pain (principal); R11.10 Vomiting, unspecified
CPT/HCPCS: 36415; 80048; 80076; 81001; 83690; 85025; 85379; 86140; 87086; 87631; 96374; 96375; 99284; J1885; J2405; J7030

== ENCOUNTER 2024-02-23 13:26 | Emergency (ER) | payer MEDICAID, SELFPAY ==
[2024-02-23 13:28] VITALS: BP 106/70; PULSE 85; RESP 16; TEMP 36.8; O2SAT 99; BMI 27.3
--- NOTE | 2024-02-23 14:14 | ED_ITS ---
HPI - Dizziness General Chief Complaint: Dizziness/Vertigo Stated Complaint: Dehydration Time Seen by Provider: 02/23/24 13:27 History of Present Illness HPI Narrative: This 28-year-old female comes in reporting vertigo symptoms over the past couple weeks. She states that it seems to be occurring primarily when laying down or getting up from a lying position. At other time she really does not have much vertigo but does feel that she is having some little thing toward the left when ambulating. She states that she does not have any weakness or altered sensation. She does report a ringing in her left ear since these vertigo symptoms started. She also has accumulation of cerumen in her ear frequently. She does not report any altered speech, unilateral weakness, or altered sensation otherwise. Related Data Previous Rx's Medication Instructions Recorded meclizine 25 mg tablet 25 mg PO QID #20 tabs 02/23/24 methylprednisolone 4 mg tablets in See Rx Instructions PO .COMPLEX 02/23/24 a dose pack (Medrol (Pietro)) #21 ea ondansetron HCl 4 mg tablet 4 mg PO Q6H #10 tabs 02/23/24 Allergies Allergy/AdvReac Type Severity Reaction Status Date / Time sumatriptan Allergy Severe throat Verified 08/25/23 16:40 swells shut Review of Systems Status of ROS: Reports: 10 or more systems reviewed and unremarkable except as noted in History and below Narrative: Constitutional: No fevers, no weight gain or loss. Eyes: No discharge. No vision changes. HENT: No congestion, no sore throat, no ear pain. Cardiovascular: No chest pain, no palpitations. Respiratory: No shortness of breath, no wheezes, no cough. Gastrointestinal: No abdominal pain, no vomiting, no diarrhea. Genitourinary: No dysuria, no hematuria. Musculoskeletal: Normal range of motion. Skin: No rashes, no pruritis. Neurological: No weakness, sensory change, speech change. Vertigo symptoms and left-sided tinnitus as described above. Endo/Heme/Allergies: No bruising or bleeding. No polydipsia. Pysch: no suicidality, no anxiety, no insomnia. All other systems reviewed and are negative. [facility] Medical History Diverticulitis (02/04/22) ?K57.92 - Diverticulitis of intestine, part unspecified, without perforation or abscess without bleeding (ICD-10) Generalized anxiety disorder ?F41.1 - Generalized anxiety disorder (ICD-10) Migraines ?G43.909 - Migraine, unspecified, not intractable, without status migrainosus (ICD-10) Vitamin D deficiency (10/26/12) ?E55.9 - Vitamin D deficiency, unspecified (ICD-10) Mild intermittent asthma (02/26/10) ?J45.20 - Mild intermittent asthma, uncomplicated (ICD-10) Gastritis (09/27/19) ?K29.70 - Gastritis, unspecified, without bleeding (ICD-10) Congenital atrophy of kidney ?Q60.5 - Renal hypoplasia, unspecified (ICD-10) Endometriosis determined by laparoscopy (03/22/17) ?N80.9 - Endometriosis, unspecified (ICD-10) Surgical History Previous delivery affecting ?O34.219 - Maternal care for unspecified type scar from previous delivery (ICD-10) History of section (02/27/19) ?Z98.891 - History of uterine scar from previous surgery (ICD-10) History of laparoscopy (03/22/17) ?Z98.890 - Other specified postprocedural states (ICD-10) [place] teeth extracted ?K08.409 - Partial loss of teeth, unspecified cause, unspecified class (ICD- 10) History of cholecystectomy ?Z90.49 - Acquired absence of other specified parts of digestive tract (ICD- 10) Family History Mother Asthma Diabetes Glaucoma (increased eye pressure) Retinal detachment Brother Asthma Father High blood pressure High cholesterol Brother Insulin resistance Social History Smoking Status: Never smoker Do you use any of these nicotine containing products: None Second hand tobacco smoke exposure: No How often do you have a drink containing alcohol: never How often do you have six or more drinks on one occasion: Never AUDIT-C Alcohol total score: 0 Non-prescribed substance use: denies use Little interest or pleasure in doing things: several days Feeling down, depressed, or hopeless: several days Exam Narrative: Exam Narrative: Constitutional: Well-developed, well-nourished, no acute distress. HEENT: Normocephalic, atraumatic. Right tympanic membrane appears normal. Left tympanic membrane is not visualized due to cerumen impaction. Neck: Normal range of motion. Nontender. Supple. Heart: Regular. No murmurs. Normal rate. Intact distal pulses. Lungs: Clear to auscultation. No chest discomfort. No wheezes, rhonchi, or rales. Abdomen: Normal bowel sounds. Nontender. No rebound tenderness. Genitalia: Deferred. Back: No midline tenderness. Normal range of motion. Extremities: Normal range of motion. No injury. Skin: Intact. No rash. Warm. No erythema or pallor. Neurologic: No altered sensation. No weakness. Alert and oriented. No facial asymmetry. Tongue is midline. [place]-oz-[id number] is normal. No pronator drift. Perlite Grinder strength is equal bilaterally. Able to raise each leg from the bed. Psychiatric: No suicidality. No anxiety or depression. No insomnia. Nursing notes and vitals signs are reviewed. Const: Vital Signs, click to edit/add: Vital Signs - 24 hr 02/23/24 13:28 Temperature 98.2 F Pulse Rate [Pulse Oximeter] 85 Respiratory Rate 16 Blood Pressure [Ri ght Upper Arm] 106/70 Pulse Oximetry 99 Oxygen Delivery Me thod Room Air Course Vital Signs Vital signs: Initial Vital Signs Temperature 98.2 F 02/23/24 13:28 Temperature Source Temporal Artery Scan 02/23/24 13:28 Pulse Rate 85 02/23/24 13:28 Respiratory Rate 16 02/23/24 13:28 Blood Pressure 106/70 02/23/24 13:28 Blood Pressure Mean 82 02/23/24 13:28 Blood Pressure Position Sitting 02/23/24 13:28 Pulse Oximetry 99 02/23/24 13:28 Oxygen Delivery Method Room Air 02/23/24 13:28 Vital Signs Temperature 98.2 F 02/23/24 13:28 Pulse Rate 85 02/23/24 13:28 Respiratory Rate 16 02/23/24 13:28 Blood Pressure 106/70 02/23/24 13:28 Pulse Oximetry 99 02/23/24 13:28 Oxygen Delivery Method Room Air 02/23/24 13:28 Temperature 98.2 F 02/23/24 13:28 Pulse Rate 85 02/23/24 13:28 Respiratory Rate 16 02/23/24 13:28 Blood Pressure 106/70 02/23/24 13:28 Pulse Oximetry 99 02/23/24 13:28 Oxygen Delivery Method Room Air 02/23/24 13:28 MDM - Dizziness MDM Narrative Medical decision making narrative: This patient comes in reporting vertigo symptoms and has normal exam except for cerumen in the left ear canal. She is not showing any sign of neurologic deficit or central process for her vertigo symptoms. She does have some hearing changes on the left side making this more suspicious for Meniere's disease. I did discuss the role of imaging for vertigo but indicated reassurance with her neurologic exam. In a process of shared decision-making she declined any imaging at this time. Her symptoms are suspicious for benign positional vertigo or more likely Meniere's disease with a hearing changes. She received pre scription for Medrol Dosepak, meclizine, and Zofran. I advised her to follow-up with ear nose and throat or return if worsening symptoms occur. Discharge Plan Discharge Additional Instructions: Take medication as prescribed. Use ear wax removal regimens [id number] as directed. Follow-up with ear nose and throat clinic, Dr. Atkins or Dr. Baer. Call [phone] for appointment. Return if symptoms are persistent or worsening. Prescriptions: New ondansetron HCl 4 mg tablet 4 mg PO Q6H Qty: 10 0RF meclizine 25 mg tablet 25 mg PO QID Qty: 20 0RF methylprednisolone [Medrol (Pietro)] 4 mg tablets,dose pack See Rx Instructions .ROUTE .COMPLEX Qty: 21 0RF Rx Instructions: orally per package directions Follow Up/Referrals: John Lockwood MD [Staff Physician] - Stand Alone Forms: [email or web address] Info Instructions
== END 2024-02-23 14:27 | disposition home or self-care (01) ==
LOC: ED 14:19
PROVIDERS: Emergency Provider Emergency Medicine Emergency Medical Services
DX: R42 Dizziness and giddiness (principal)
CPT/HCPCS: 99283; 99284

== ENCOUNTER 2025-05-31 08:42 | Outpatient (CLI) | payer BC, SELFPAY | END 2025-05-31 08:43 | disposition home or self-care (01) | PROVIDERS: PCP Family Medicine; Visit Provider Family Medicine | DX: E55.9 Vitamin D deficiency, unspecified (principal); R53.83 Other fatigue; Z83.438 Family history of other disorder of lipoprotein metabolism and other lipidemia; Z13.6 Encounter for screening for cardiovascular disorders | CPT/HCPCS: 80048; 80061; 82306; 85025 ==

== ENCOUNTER 2025-08-13 22:13 | Emergency (ER) | payer BC, SELFPAY ==
--- OUTSIDE RECORDS SUMMARY | 2025-08-13 22:15 | XMS_ITS | Clinical Summary ---
Author Organization [facility] Address [address] [place] [address] Care Team Providers Care [employer] Name Role Phone Pcp, No Primary Care Provider Unavailabl e Allergies Active Allergy Reactions Criticality Noted Date Comments Sumatriptan Succinate Throat Swelling/Closing High 02/27/2019 Oxytocin Chest Pain 02/27/2019 Other reaction(s): Other (see comments) Chest pain/pressure Sumatriptan *Unknown Low 08/24/2017 Dry throat Medications acetaminophen (TYLENOL EXTRA STRGTH) 500 mg tablet Take 500 mg by mouth. 9 Active escitalopram oxalate (LEXAPRO) 10 mg tabletIndications :Dysthymia 1/2 tablet once daily for 6 days, then increase to one tablet once daily. 30 tablet 0 Active albuterol HFA (PROVENTIL HFA) 90 mcg/actuation inhalerIndication s:Mild intermittent asthma without complication (HC) Inhale 2 Puffs by mouth every 4 hours if needed. 1 Inhaler 1 0 Active Active Problems Problem Noted Date Diagnosed Date Gastritis 09/27/2019 Atrophy of right kidney 12/21/2016 Kidney hypertrophy 12/21/2016 Overview (12/21/2016): left Ovarian enlargement, left 12/21/2016 Ovarian enlargement, right 12/21/2016 Migraine with aura and witho ut status migrainosus, not intractable 04/22/2015 Seasonal affective disorder 01/24/2015 Overview (08/14/2019): Overview: Disorder Affective Seasonal Vitamin D deficiency 10/26/2012 Mild intermittent asthma 02/26/2010 Resolved Problems Problem Noted Date Diagnosed Date Resolved Date Term 02/27/2019 08/24/2019 Migraine 02/26/2010 04/22/2015 Immunizations Immunization Administration Dates Next Due AMB Influenza, IIV3 (Age >=3 years)(Flu Clinic Only) 09/18/2011 DTaP 08/06/2005, 7,08/13/1995,07/29,05/09/1994 Hepatitis A (Peds) 05/19/2011,06/13/2010 Hepatitis B (Peds) 12/22/2006, 6,12/22/2005,08/06 Hepatitis B, Unspecified 12/22/2006,07/22/2006,1 Human Papilloma Virus Vaccine 06/07/2014, 011,06/13/2010 Inactivated Polio Vaccine 01/14/1994,1993, 1993 Influenza Virus, Unspecified 08/24/2017, 10/07/2009,10/22/2008,11/10 Influenza, IIV3 (Age 6-35 mos) 6,07/10/2015,09/18/2011,10/07 Influenza, IIV3 (Age >=3 years) 08/26/20 12,11/12/2010,10/07/2009,10/22,11/10/2007 Influenza, IIV4 08/24/2017,08/10/2016 Influenza, IIV4 (=>6mos) MDV 08/30/2014 MENINGOCOCCAL VACCINE 2 VIAL 2MO-55YO (MENVEO) 06/13/2010 MMR 04/07/1999,07/18/1998 Meningococcal Vaccine (Menactra) 06/13/2010 Meningococcal Vaccine (Menomune) 06/13/2010 Td (Age >=7 Years) 08/06/2005 Tdap 09/12/2012,08/06/2005 Family History Medical History Relation Name Comments Good Health Brother 1 Orthodoxy Asthma Brother 2 Zackary Hyperlipidemia Father Other Maternal Grandfather tree fe ll on him, , age 40s Diabetes type I Maternal Grandmother Diabetes Mother type 2 Good Health Paternal Grandfather Good Health Paternal Grandmother Relation Name Status Comments Brother 1 Orthodoxy Alive Brother 2 Zackary Alive Father Alive Maternal Grandfather Maternal Grandmother Mother Alive Paternal Grandfather Alive Paternal Grandmother Alive Social History Tobacco Use Types Packs/Day Years Used Date Smoking Tobacco: Never Smokeless Tobacco: Never Tobacco Cessation:Counseling Given: Yes Alcohol Use Standard Drinks/Week Comments Yes 0 (1 standard drink = 0.6 oz pur e alcohol) social/occasional PHQ-2 Answer Date Recorded PHQ-2 TOTAL SCORE 3 05/06/2020 Social Connections Answer Date Recorded Frequency of Communication with Friends and Fami ly Not on file 11/01/2021 Financial Resource Strain Answer Date R ecorded Difficulty of Paying Living Expenses Not on file 11/01/2021 Difficulty of Paying Living Expenses Not on file 11/01/2021 Comments No Sex and Gender Information Value Date Recorded Sex Assigned at Not on file 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 ([facility] (OR[facility] Comments:Reaction to p itocin lead to Last Filed Vital Signs Vital Sign Reading Time Taken Comments Blood Pressure 98/52 06/17/2020 4:44 PM CDT Pulse 73 06/17/2020 4:44 PM CDT Temperature 37.1 C (98.8 F) 06/17/2020 4:44 PM CDT Respiratory Rate 16 06/17/2020 4:44 PM CDT Oxygen Saturation 100% 06/17/2020 4:44 PM CDT Inhaled Oxygen Concentration - - Weight 60.9 kg (134 lb 4.8 oz) 06/17/2020 4:44 P M CDT Height 149 cm (4' 10.66) 05/06/2020 2:56 PM CDT Body Mass Index 27.44 05/06/2020 2:56 PM CDT Plan of Treatment Health Maintenance Due Date Last Done Comments HIV for age 15-65 2008 Hepatitis C screening for age 18-79 2011 BMI (ht and wt on same day) for age 18+ 05/06/2021 05/06/2020, 08/24/2019, 08/14/2019, Additional history exists Depression screening for age 12+ 05/06/2021 05/06/2020, 07/10/2019, 07/10/2019, Additional history exists Tetanus booster 09/12/2022 09/12/2012, 04/2005, 08/06/2005 COVID-19 vaccine series ( season) 2025 Influenza Vaccine (#1) 2025 7, 08/24/2017, 08/10/2016, Additional history exists Pap test for age 21-65 04/06/2026 3, 04/06/2023, 11/19/2016, Additional history exists RSV vaccine for adults or (1 - 1-dose 75+ series) 2068 Hepatitis B series for 19+ Completed 12/22, 12/22/2006, 07/22/2006, Additional history exists HPV series for age 9-45 Completed 06/07/20 14, 05/19/2011, 06/13/2010 Pneumococcal series for age 6-49 Aged Out No longer eligible based on patient's age to complete this topic Procedures Procedure Name Priority Date/Time Associated Diagnosis Comments HPV HIGH RISK Routine 04/06/2023 1:30 PM CDT from Last 3 Months or Most Recently Relevant to Health Maintenance Results * (ABNORMAL) HPV HIGH RISK (04/06/2023 1:30 PM CDT) TYPE 16 Negative Negative 04/12/2023 2:48 PM CDT [facility] TYPE 18 Negative Negative 04/12/2023 2:48 PM CDT [facility] OTHER HIGH RISK TYPES Positive(A) Negative 04/12/2023 2:48 PM CDT [facility] Other (Cervical) 04/06/2023 1:30 PM CDT 04/08/2023 6:17 PM CDT Narrative [facility] - 04/12/2023 2:48 PM CDT Specimen is positive for the DNA of any one of, or combination of, the following high risk HPV types: 31, 33, 35, 39, 45, 51, 52, 56, 58, 59, 66, 68. HPV types 16 and 18 DNA were undetectable or below the pre-set threshold. Methodology: Greta Sandhya 4800 HPV Test us Ivis Allison NP MICROBIOLOGY Final Res ult [facility] [address] [place] [address], from Last 3 Months or Most Recently Relevant to Health Maintenance Insurance [employer] OF NON-ID-[facility] [id number] [place] [id number] Advance Directives * Full Code (Latest Code Status on File) Date Activated Date Inactivated Comments 07/18/2019 1:47 PM 07/18/2019 11:52 PM Question Answer Comments Code Status Discussion: Discussed * Full Code Date Activated Date Inactivated Comments 02/27/2019 9:08 AM 03/01/2019 12:39 PM * Full Code Date Activated Date Inactivated Comments 03/22/2017 10:09 AM 03/22/2017 10:48 AM Care Teams [employer] Relationship Specialty Start Date End Date Pcp, No . PCP - General 05/21/21
[2025-08-13 22:33] VITALS: BP 116/74; PULSE 83; RESP 18; TEMP 36.9; O2SAT 99; BMI 28.3
--- NOTE | 2025-08-13 22:38 | ED.LOWEXIN ---
HPI - Extremity Injury (Lower) General Time Seen by Provider: 22:38 Date Seen: 08/13/25 Chief Complaint: Extremity Pain/Injury, Lower Stated Complaint: L knee pain/vomiting Time Seen by Provider: 08/13/25 22:38 Source: patient, RN notes reviewed and old records reviewed Mode of arrival: ambulatory Limitations: no limitations History of Present Illness HPI Narrative: Arley is a very pleasant 29-year-old female with history of migraine, asthma, congenital atrophy of the kidney who comes to the emergency room with complaints of left knee pain. Patient notes the onset of anterior knee pain 2 months ago without any injury or trauma. She was initially seen by her primary physician Dr. Lockwood at which time x-rays showed that she had some decreased joint space. She notes intermittent discomfort since that time until last August 09 when the pain became quite intense. She still describes it in her anterior knee but it now radiates down both sides of her calf and into her thigh. She has noticed some mild left lower back pain as well. She notes that since when the pain has become so intense she actually has episodes of vomiting. He has not had fever from this. Again, cannot recall any trauma. No loss of bowel or bladder control. Denies a history of DVT. Tried to place an knee immobilizer but it increased her pain quite a bit. She was supposed to see her primary this week but was unable to attend the appointment. Related Data Previous Rx's ?Medication ?Instructions ?Recorded albuterol sulfate 90 mcg/actuation 2 puff inhalation Q4-6H PRN 05/31/25 aerosol inhaler shortness of breath or wheezing #8.5 grams escitalopram oxalate 10 mg tablet 10 mg PO QDAY #30 tabs 05/31/25 (Lexapro) cholecalciferol (vitamin D3) 1,250 1,250 mcg PO QWEEK #13 caps 06/04/25 mcg (50,000 unit) capsule fluticasone furoate 100 1 inh inhalation Q24H #30 ea 06/08/25 mcg/actuation blister powder for inhalation (Arnuity Ellipta) Allergies Allergy/AdvReac Type Severity Reaction Status Date / Time sumatriptan Allergy Severe throat Verified 08/13/25 22:36 stacey blount Review of Systems Status of ROS: Reports: 10 or more systems reviewed and unremarkable except as noted in History and below Const: Denies: fever, chills or fatigue Eyes: Denies: change in vision ENMT: Denies: nasal congestion Cardio: Denies: chest pain or shortness of breath with exertion Resp: Denies: shortness of breath or cough GI: Reports: nausea and vomiting; Denies: abdominal pain or diarrhea : Reports: other (Denies any possibility of ); Denies: painful urination Musculo: Reports: back pain (Mild left low back) Integ/Breast: Denies: rash or redness Neuro: Denies: headache Endo: Denies: fatigue PFSH [facility] Medical History Migraine with aura ?G43.109 - Migraine with aura, not intractable, without status migrainosus (ICD-10) Diverticulitis (02/04/22) ?K57.92 - Diverticulitis of intestine, part unspecified, without perforation or abscess without bleeding (ICD-10) Vitamin D deficiency ?E55.9 - Vitamin D deficiency, unspecified (ICD-10) Mild persistent asthma ?J45.30 - Mild persistent asthma, uncomplicated (ICD-10) Chronic major depressive disorder ?F32.9 - Major depressive disorder, single episode, unspecified (ICD-10) Generalized anxiety disorder ?F41.1 - Generalized anxiety disorder (ICD-10) Congenital atrophy of kidney ?Q60.5 - Renal hypoplasia, unspecified (ICD-10) Endometriosis determined by laparoscopy (03/22/17) ?N80.9 - Endometriosis, unspecified (ICD-10) Surgical History History of 2 sections ?Z98.891 - History of uterine scar from previous surgery (ICD-10) History of laparoscopy (03/22/17) ?Z98.890 - Other specified postprocedural states (ICD-10) [place] teeth extracted ?K08.409 - Partial loss of teeth, unspecified cause, unspecified class (ICD-10) History of cholecystectomy ?Z90.49 - Acquired absence of other specified parts of digestive tract (ICD-10) Family History Mother Asthma Diabetes Glaucoma (increased eye pressure) Retinal detachment Brother Asthma Father High blood pressure High cholesterol Brother Insulin resistance Social History Narrative: , two kids, 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[employer], nonsmoker, rare ETOH What is your current living situation?: I presently have a place to live Problems where you live: mold and water leaks In the past 12 months, utilities in danger of being shut off: unable to answer In past 12 months, lack of transportation kept you from medical appts, meetings, work, or getting things needed for daily living: no In the past 12 mos, have been you worried that your food would run out before you had money to buy more?: sometimes true In the past 12 mos, the food you bought just didn't last and you didn't have money to buy more?: sometimes true Smoking Status: Never smoker Do you use any of these nicotine containing products: None Second hand tobacco smoke exposure: No How often do you have a drink containing alcohol: never How often do you have six or more drinks on one occasion: Less than monthly AUDIT-C Alcohol total score: 1 Non-prescribed substance use: denies use How often does anyone, including family, friends and others, physically hurt you: never How often does anyone, including family, friends and others, insult or talk down to you: never How often does anyone, including family, friends and others, threaten you with harm: never How often does anyone, including family, friends and others, scream or curse at you: never Health Related Social Needs: Inadequate housing (Z59.1) and food insecurity (Z59.41) Exam Narrative: Exam Narrative: Alert and oriented. In discomfort. Somewhat tearful and occasionally retching. External ears eyes nose clear. Heart with regular rate and rhythm and lungs are clear. Abdomen soft nontender. Examination of the knee shows no deformity. Movement of the patella shows pain with lateral movement. No effusion is noted. No pain in the popliteal fossa. Pain noted in the calf. No erythema. Lower extremity strength and motor is intact. Questionable wasting of the anterior quad verses the right. Very subtle. Const: Vital Signs, click to edit/add: Vital Signs - 24 hr 08/13/25 22:33 08/13/25 23:01 Temperature 98.5 F Pulse Rate [Pulse Oximeter] 83 Respiratory Rate 18 Blood Pressure [Ri t Upper Arm] 116/74 Pulse Oximetry 99 96 Oxygen Delivery Me thod Room Air Documenting provider has reviewed patient's vital signs: yes Course Course ED Course: Differential diagnosis includes but is not limited to gout, joint infection, DVT, radiculopathy, arthritis, tendinitis. At this time previous x-ray noted no significant abnormality. Ideally it would be great to have MRI availability but we do not have it this evening. Will check ultrasound of the calf as well as CBC, basic panel CRP. Will use morphine 4 mg Zofran 4 mg for discomfort and nausea. Reevaluation(s) Reevaluation #1: White count normal at 8.6 to as is CRP. Lower extremity ultrasound is negative for DVT. Reevaluation #2: Palpation of lower back does not yield significant tenderness. Pulse patient and left buttock is somewhat more uncomfortable. Strength at ankles and great toes within normal limits. Some hesitation with movement of the great toe but with distraction normal. Patient is feeling somewhat improved after morphine and Zofran. Vital Signs Vital signs: Initial Vital Signs Temperature 98.5 F 08/13/25 22:33 Temperature Source Temporal Artery Scan 08/13/25 22:33 Pulse Rate 83 08/13/25 22:33 Respiratory Rate 18 08/13/25 22:33 Blood Pressure 116/74 08/13/25 22:33 Blood Pressure Mean 88 08/13/25 22:33 Blood Pressure Position Supine 08/13/25 22:33 Pulse Oximetry 99 08/13/25 22:33 Oxygen Delivery Method Room Air 08/13/25 22:33 Vital Signs Temperature 98.5 F 08/13/25 22:33 Pulse Rate 83 08/13/25 22:33 Respiratory Rate 18 08/13/25 22:33 Blood Pressure 116/74 08/13/25 22:33 Pulse Oximetry 99 08/13/25 22:33 Oxygen Delivery Method Room Air 08/13/25 22:33 Temperature 98.5 F 08/13/25 22:33 Pulse Rate 83 08/13/25 22:33 Respiratory Rate 18 08/13/25 22:33 Blood Pressure 116/74 08/13/25 22:33 Pulse Oximetry 96 08/13/25 23:01 Oxygen Delivery Method Room Air 08/13/25 22:33 Medications Administered Medications: Generic Name Dose Route Start Last Admin Trade Name Michelle PRN Reason Stop Dose Admin Morphine Sulfate 4 mg 08/13/25 22:51 08/13/25 23:16 Morphine 4 Mg/Ml Inj IVP 08/13/25 22:52 4 mg ONCE ONE Administration Ondansetron HCl 4 mg 08/13/25 22:51 08/13/25 23:16 Ondansetron 2 Mg/Ml Inj IVP 08/13/25 22:52 4 mg ONCE ONE Administration MDM - Extremity Injury (Lower) MDM Narrative Medical decision making narrative: 1. Left knee pain-patient's primary discomfort is anterior knee. Over the past 2 months it has gotten somewhat worse and now radiates post inferiorly and superiorly. Does not really fit any specific nerve distribution although patient does have some low back pain. She notes that this occurs when she is having to be supine. White count and CRP reassuring and there is no evidence of joint infection or gout. At this time patient is receptive to a burst of steroids. Given her congenital atrophy of a kidney I would rather do steroids then an NSAID. Will do 40 mg daily for 5 days. During this time will have her avoid any ibuprofen. In addition we spoke about correct dosing of acetaminophen. Reluctantly she did agree to oxycodone as needed. Will use 5 mg tabs 1/2-1 tab Q 4-6 hours p.r.n. 8. With no refills via instant meds. Finally for nausea Zofran 4 mg ODT q.8 hours p.r.n. 10. With no refill via instant meds. No vomiting noted in the ED. Given the reassuring appearance of the joint, no red flag symptoms, reassuring laboratory values I do not feel that a CT is in order here tonight. I do think MRI which I cannot do at this time is the better radiological test. 2. Disposition-at this time I do believe this more likely represents knee pain than radicular pain a but certainly they could be overlapping. Patient has a follow-up appointment on WednesdayAugust 15 with her primary doctor Mandie. She may need MRI to further ascertain source of her discomfort. I am hopeful that the steroid may be helpful in this case. She understands to return to the ER if she starts experiencing loss of bowel or bladder control, genital numbness, increasing redness or swelling of the knee or fever. Medical Records Attestation: I reviewed the patient's medical records. Lab Data Labs: Lab Results 08/13/25 Range/Units 23:00 WBC 8.62 (4.50-11.00) K/uL RBC 4.64 (4.00-5.20) m/uL Hgb 13.4 (12.0-16.0) gm/dL Hct 40.1 (33.0-51.0) % MCV 86 (80-100) fL MCH 29 (26-34) pg MCHC 33 (32-36) gm/dL RDW Coeff of Arely 12.3 (11.5-15.5) % Plt Count 238 (140-440) K/uL Neut % (Auto) 53.1 (42.0-72.0) % Lymph % (Auto) 38.5 (20-44) % [place] % (Auto) 6.3 (0.0-11.0) % Eos % (Auto) 1.9 (0.0-7.0) % Baso % (Auto) 0.1 (0.0-3.0) % Neut # (Auto) 4.58 (1.7-7.0) K/uL Lymph # (Auto) 3.32 H (0.90-2.90) K/uL [place] # (Auto) 0.50 (0.00-0.90) K/UL Eos # (Auto) 0.16 (0.00-0.50) K/uL Baso # (Auto) 0.01 (0.00-0.30) K/uL Abs Immat Gran (auto) 0.01 (0.00-0.30) K/uL Imm/Tot Granulo (auto) 0.1 % Sodium 134 L (135-149) mmol/L Potassium 3.6 (3.6-5.1) mmol/L Chloride 101 (96-114) mmol/L Carbon Dioxide 25 (20-32) mmol/L Anion Gap 8 (7-15) mEq/L BUN 14 (5-24) mg/dL Creatinine 0.6 (0.5-1.5) mg/dL Estimated Creat Clear 97.58 Estimated GFR 123 ml/min Glucose 132 H (60-115) mg/dL Calcium 9.1 (8.4-10.6) mg/dL C-Reactive Protein < 0.5 L (0.5-1.0) mg/dL Imaging Data Knee x-ray from previous: Attestation: I have reviewed the pertinent imaging results. My impression: By my read I do not note any significant abnormality. Radiologist's impression: No significant abnormality was noted on the radiologist read. Discharge Plan Discharge Clinical Impression: Knee pain, left anterior Patient Disposition: Home, Self-Care Condition: Improved Additional Instructions: Follow-up as previously scheduled with your primary on Wednesday. May need MRI of the knee or evaluation of your low back. Tylenol should be limited to 4000 mg in a 24 hour period. You may use 650 mg every 4 hours or 1000 mg every 6 hours. Will have you not use ibuprofen at this time while you are on a steroid. Together they can be hard on the stomach. Prednisone as a steroid we will use for anti-inflammatory purposes. Will give you a small amount of oxycodone to use for breakthrough pain. Please note that you should not use this medicine if your driving. You should not use alcohol or any sedating or sleep medications with this. It will give you constipation so he may want to start on a stool softener. Zofran is a medication for nausea that he will also receive through the machine. Prescriptions: No Action albuterol sulfate 90 mcg/actuation HFA aerosol inhaler 2 puff inhalation Q4-6H PRN (Reason: shortness of breath or wheezing) Qty: 8.5 5RF escitalopram oxalate [Lexapro] 10 mg tablet 10 mg PO QDAY Qty: 30 1RF Rx Instructions: 1/2 QD x 6 days then 1 QD cholecalciferol (vitamin D3) 1,250 mcg (50,000 unit) capsule 1,250 mcg PO QWEEK Qty: 13 3RF fluticasone furoate [Arnuity Ellipta] 100 mcg/actuation blister with device 1 inh inhalation Q24H Qty: 30 12RF Follow Up/Referrals: John Lockwood MD [Primary Care Provider, Family Practice] Stand Alone Forms: [facility] Info Instructions
--- NOTE | 2025-08-13 22:51 | CRLHL7_ITS ---
For Patients: As a result of the Century Cures Act, medical imaging exams and procedure reports are released immediately into your electronic medical record. You may view this report before your referring provider. If you have questions, please contact your health care provider. INDICATION: Left calf pain. TECHNIQUE: Ultrasound venous duplex lower left extremity. Compression venous exam was performed using de la fuente-scale, color Doppler, and spectral Doppler analysis. COMPARISON: None. FINDINGS: Deep veins: Sonographic imaging demonstrates the left common femoral, deep femoral, superficial femoral, popliteal, posterior tibial, peroneal and the contralateral right common femoral veins to be fully compressible with normal color Doppler blood flow. Superficial veins: Greater saphenous vein is fully compressible. No popliteal cyst. IMPRESSION: No deep venous thrombosis in the evaluated veins of the left lower extremity. Dictated by Christophe Medley MD @ 08/14/2025 12:13:57 AM (Electronically Signed)
[2025-08-13 23:01] VITALS: O2SAT 96
[2025-08-13 23:11] LABS: Hematocrit* 40.1 % (33.0-51.0); Hemoglobin* 13.4 gm/dL (12.0-16.0); Immature Granulocytes Abs Auto 0.01 K/uL (0.00-0.30); Immature Granulocytes Pct Auto 0.1 %; Lymphocytes Absolute Auto 3.32 K/uL (0.90-2.90); Mean Corpuscular HGB Conc 33 gm/dL (32-36); Mean Corpuscular Hemoglobin 29 pg (26-34); Mean Corpuscular Volume 86 fL (80-100); RDW Coefficient of Variation % 12.3 % (11.5-15.5); Red Blood Count* 4.64 m/uL (4.00-5.20); Slide Review Reflex No; White Blood Count* 8.62 K/uL (4.50-11.00)
[2025-08-13] MEDS: ONDANSETRON 2 MG/ML inj 4 MG IVP (23:16)
[2025-08-13] MEDS: MORPHINE 4 MG/ML INJ IVP (23:16)
[2025-08-13 23:27] LABS: Chloride* 101 mmol/L (96-114); Sodium* 134 mmol/L (135-149)
[2025-08-13 23:28] LABS: Potassium* 3.6 mmol/L (3.6-5.1)
[2025-08-13 23:31] LABS: Anion Gap 8 mEq/L (7-15); Blood Urea Nitrogen* 14 mg/dL (5-24); Calcium* 9.1 mg/dL (8.4-10.6); Carbon Dioxide* 25 mmol/L (20-32); Creatinine* 0.6 mg/dL (0.5-1.5); Est. Creatinine Clearance* 97.58; Estimated Glomerular Filt Rate 123 ml/min; Glucose* 132 mg/dL (60-115)
[2025-08-14 00:43] VITALS: BP 105/76; PULSE 77; RESP 16; O2SAT 100
== END 2025-08-14 00:44 | disposition home or self-care (01) ==
PROVIDERS: Emergency Provider Family Medicine; PCP Family Medicine
DX: M25.562 Pain in left knee (principal)
CPT/HCPCS: 36415; 80048; 85025; 86140; 93971; 94761; 96374; 96375; 99284; J2270; J2405

== ENCOUNTER 2025-08-22 08:02 | Outpatient (CLI) | payer BC, SELFPAY ==
--- NOTE | 2025-08-22 08:15 | CRLHL7_ITS ---
For Patients: As a result of the Century Cures Act, medical imaging exams and procedure reports are released immediately into your electronic medical record. You may view this report before your referring provider. If you have questions, please contact your health care provider. EXAM: MRI OF THE LEFT KNEE, WITHOUT CONTRAST CLINICAL INDICATION: Left knee pain. No known injury. No relevant prior surgical history. COMPARISON: Left knee radiographs: 05/31/2025 TECHNIQUE: Axial, sagittal and coronal T1, PD, PD FS and T2 FS images. 1.5 [employer] MR scanner. FINDINGS: OSSEOUS STRUCTURES: No acute fracture or pathologic marrow replacement. JOINT SPACE AND CAPSULE: No significant effusion or joint body. MENISCI: Medial meniscus: Intact. Lateral meniscus: Intact. LIGAMENTS: Anterior Cruciate Ligament: Intact. Posterior Cruciate Ligament: Intact. Medial Collateral Ligament: Intact. Lateral collateral ligament: Intact. EXTENSOR MECHANISM: Distal Quadriceps Tendon: Normal. Patellar Tendon: Normal. Medial Patellar Retinaculum and Medial Patellofemoral Ligament: Normal. Lateral Patellar Retinaculum: Normal. POSTEROMEDIAL CORNER COMPLEX: Medial Head of the Gastrocnemius and Semimembranosus Tendons: Normal. POSTEROLATERAL CORNER COMPLEX: Distal Biceps Femoris Tendon Complex: Normal. Iliotibial Band: Normal. Popliteus Tendon: Normal. Posterolateral Corner Capsule: Normal. ARTICULAR CARTILAGE: Medial compartment: Intact. Lateral compartment: Intact. Patellofemoral compartment: Small foci of deep and full-thickness fissuring in the patellar lateral facet and median ridge. Small areas of mild trochlear chondral thinning. PERIARTICULAR SOFT TISSUES: Popliteal Cyst: None. Periarticular Cysts or Ganglia: None. Bursae: No significant distention. Musculature: Normal bulk and signal. Subcutaneous and Soft Tissues: No masses or fluid collections. Neurovascular Structures: Within normal limits. OTHER FINDINGS: Nonspecific edema within the superolateral Hoffa`s fat pad. IMPRESSION: 1. Lateral patellar chondrosis and superolateral Hoffa`s fat pad edema suggestive of patellar maltracking in the appropriate clinical context. 2. Intact menisci and ligaments. Dictated by Ramiro Jules MD @ 08/23/2025 9:12:40 AM (Electronically Signed)
== END 2025-08-22 08:03 | disposition home or self-care (01) ==
LOC: MRI 08:02
PROVIDERS: PCP Family Medicine; Visit Provider Family Medicine
DX: M25.562 Pain in left knee (principal)
CPT/HCPCS: 73721